=== PATIENT | female | born 1975 ===

== ENCOUNTER → 2023-11-05 | Outpatient (REF) | payer OTHER ==
[2023-11-11 14:57] LABS: HPV APTIMA Not Detected (Not Detected)
== END ==
LOC: M LAB REF 13:08
PROVIDERS: ATTEND Physician Assistant
DX: Z12.4 Encounter for screening for malignant neoplasm of cervix (principal); R87.610 Atypical squamous cells of undetermined significance on cytologic smear of cervix (ASC-US)
CPT/HCPCS: 87624; G0123

== ENCOUNTER → 2023-12-08 | Outpatient (REF) | LOC: M SLEEP HO 11:00 | PROVIDERS: ATTEND Physician Assistant | DX: G47.33 Obstructive sleep apnea (adult) (pediatric) (principal) ==